=== PATIENT | male | born 1955 | race American Indian/Alaskan Native ===

== ENCOUNTER 2017-06-18 17:11 | Inpatient (IN) | payer MEDICARE ==
[2017-06-18] MEDS ORDERED: TYLENOL PO STA (17:41)
[2017-06-18] MEDS ORDERED: NACL 0.9% 500 ML 500 ML IV ONE (17:41)
[2017-06-18 18:40] LABS: Hematocrit 41.4 % (35.5-45.6); Hemoglobin 13.7 gm/dl (11.8-15.2); Mean Corpuscular HGB Conc 33 % (32-34); Mean Corpuscular Hemoglobin 31 pg (28-32); Mean Corpuscular Volume 93 fl (84-94); Platelet Count 251 K/mm3 (140-440); Red Blood Count 4.43 M/mm3 (3.65-5.03); Red Cell Distribution Width 14.6 % (13.2-15.2)
[2017-06-18 18:43] LABS: White Blood Count 20.4 K/mm3 (4.5-11.0)
[2017-06-18 18:52] LABS: Albumin 3.9 g/dL (3.9-5); Albumin/Globulin Ratio 1.3 %; Alkaline Phosphatase 86 units/L (35-129); Blood Urea Nitrogen 11 mg/dL (9-20); Calcium 9.2 mg/dL (8.4-10.2); Carbon Dioxide 21 mmol/L (22-30); Chloride 95.5 mmol/L (98-107); Glucose 177 mg/dL (75-100); Sodium 132 mmol/L (137-145); Total Protein 6.9 g/dL (6.3-8.2)
[2017-06-18 18:59] LABS: INR 1.19 (0.87-1.13)
[2017-06-18 19:25] LABS: Alanine Aminotransferase 11 units/L (7-56); Anion Gap 20 mmol/L; Potassium 4.5 mmol/L (3.6-5.0)
[2017-06-18 19:37] LABS: Basophils % (Manual) 0 % (0.0-1.8); Blastocytes % (Manual) 0 %; Eosinophils % (Manual) 0 % (0.0-4.3)
[2017-06-18 19:40] LABS: Anisocytosis 1+; Spherocytes 1+
[2017-06-18 19:41] LABS: Diff Status Complete; Platelet Estimate Consistent w Auto
[2017-06-18 20:37] LABS: Bacteria,Urine 4+ /HPF (Negative); Bilirubin,Urine NEG (Negative); Blood,Urine LG (Negative); Ketones,Urine TR mg/dL (Negative); Leukocyte Esterase,Urine LG (Negative); Mucus,Urine 2+ /HPF; Nitrite,Urine NEG (Negative)
[2017-06-18 20:38] LABS: WBC,Urine > 182.0 /HPF (0.0-6.0)
[2017-06-18] MEDS ORDERED: LEVAQUIN 750MG/150ML 750 MG/150 ML BAG IV ONE (20:41)
--- NOTE | 2017-06-18 20:57 | Emergency Department Report ---
HPI - General Chief Complaint: Fever Time Seen by Provider: 06/18/17 20:41 - HPI HPI: Room 6 The patient is a 62-year-old male presenting with a chief complaint of confusion. Family states today the patient "seemed confused." Family states the patient's while walking got bad" and he was walking "sideways" down the hallway. Family subsequently called EMS and the patient was found to have a fever. The patient has a history of paranoid schizophrenia reportedly takes Haldol monthly. The patient denies complaints. Patient denies nausea vomiting , cough or chest pain. Patient denies abdominal pain. Family states the patient fell in the shower approximately 2 weeks ago but did not go to the hospital. Location: Mental state, see above Duration: [see above] Quality: Confusion Severity: Moderate Modifying factors: [see above] Context: [see above] Mode of transportation: [not driving] ED Past Medical Hx - Past Medical History Hx Diabetes: Yes (NO CURRENT MEDS) Hx Psychiatric Treatment: Yes (PARANOID SCHIZOPHRENIA) - Surgical History Past Surgical History?: No - Family History Family history: no significant - Social History Smoking Status: Current Every Day Smoker (2 pack per day) Substance Use Type: None (denies illicit drug use) - Medications Home Medications: Home Medications Medication Instructions Recorded Confirmed Last Taken Type Benztropine [Cogentin] 2 mg PO QHS 06/18/17 06/18/17 Unknown History Haloperidol Decanoate (Nf) [Haldol 50 mg IM QMONTH 06/18/17 06/18/17 Unknown History Decanoate (Nf)] Ibuprofen [Advil 100 MG tab] 100 mg PO PRN PRN 06/18/17 06/18/17 Unknown History ED Review of Systems ROS: Stated complaint: AMS/UNABLE TO WALK Other details as noted in HPI Comment: All other systems reviewed and negative Constitutional: fever Eyes: denies: eye pain, eye discharge, vision change ENT: denies: ear pain, throat pain Respiratory: denies: cough, shortness of breath, wheezing Cardiovascular: denies: chest pain, palpitations Endocrine: no symptoms reported Gastrointestinal: denies: abdominal pain, nausea, diarrhea Genitourinary: denies: urgency, dysuria Musculoskeletal: denies: back pain, joint swelling, arthralgia Skin: denies: rash, lesions Neurological: confusion. denies: headache, weakness, paresthesias Hematological/Lymphatic: denies: easy bleeding, easy bruising Physical Exam - Physical Exam Vital Signs: Vital Signs 06/18/17 06/18/17 06/18/17 17:23 17:52 20:19 Temperature 100.8 F H 101.1 F H Pulse Rate 139 H 112 H Respiratory 38 H 38 H 20 Rate Blood Pressure 139/64 Blood Pressure 147/79 [Left] O2 Sat by Pulse 100 99 Oximetry Physical Exam: GENERAL: The patient is well-developed well-nourished male lying on stretcher not appearing to be in acute distress. [] HEENT: Normocephalic. Atraumatic. Extraocular motions are intact. Patient has moist mucous membranes. NECK: Supple. Trachea midline CHEST/LUNGS: Clear to auscultation. There is no respiratory distress noted. HEART/CARDIOVASCULAR: Regular. There is no tachycardia. There is no gallop rub or murmur. ABDOMEN: Abdomen is soft, nontender. Patient has normal bowel sounds. There is no abdominal distention. SKIN: There is no rash. There is no edema. There is no diaphoresis. NEURO: The patient is awake and alert. The patient is cooperative. The patient has normal speech MUSCULOSKELETAL: There is no evidence of acute injury. ED Course Vital Signs 06/18/17 06/18/17 06/18/17 17:23 17:52 20:19 Temperature 100.8 F H 101.1 F H Pulse Rate 139 H 112 H Respiratory 38 H 38 H 20 Rate Blood Pressure 139/64 Blood Pressure 147/79 [Left] O2 Sat by Pulse 100 99 Oximetry ED Medical Decision Making - Lab Data Result diagrams: 06/18/17 18:06 06/18/17 18:06 Laboratory Tests 06/18/17 06/18/17 06/18/17 17:35 18:06 18:06 WBC 20.4 H RBC 4.43 Hgb 13.7 Hct 41.4 MCV 93 MCH 31 MCHC 33 RDW 14.6 Plt Count 251 Add Manual Diff Complete Total Counted 100 Seg Neuts % (Manual) 78.0 H Band Neutrophils % 8.0 Lymphocytes % (Manual) 7.0 L Reactive Lymphs % (Man) 0 Monocytes % (Manual) 7.0 Eosinophils % (Manual) 0 Basophils % (Manual) 0 Metamyelocytes % 0 Myelocytes % 0 Promyelocytes % 0 Blast Cells % 0 Nucleated RBC % Not Reportable Seg Neutrophils # Man 15.9 H Band Neutrophils # 1.6 Lymphocytes # (Manual) 1.4 Abs React Lymphs (Man) 0.0 Monocytes # (Manual) 1.4 H Eosinophils # (Manual) 0.0 Basophils # (Manual) 0.0 Metamyelocytes # 0.0 Myelocytes # 0.0 Promyelocytes # 0.0 Blast Cells # 0.0 WBC Morphology Not Reportable Hypersegmented Neuts Not Reportable Hyposegmented Neuts Not Reportable Hypogranular Neuts Not Reportable Smudge Cells Not Reportable Toxic Granulation Not Reportable Toxic Vacuolation Not Reportable Dohle Bodies Not Reportable Pelger-Huet Anomaly Not Reportable Heather Rods Not Reportable Platelet Estimate Consistent w auto Clumped Platelets Not Reportable Plt Clumps, EDTA Not Reportable Large Platelets Not Reportable Giant Platelets Not Reportable Platelet Satelliting Not Reportable Plt Morphology Comment Not Reportable RBC Morphology Not Reportable Dimorphic RBCs Not Reportable Polychromasia Not Reportable Hypochromasia Not Reportable Poikilocytosis Not Reportable Anisocytosis 1+ Microcytosis Not Reportable Macrocytosis Not Reportable Spherocytes 1+ Pappenheimer Bodies Not Reportable Sickle Cells Not Reportable Target Cells Not Reportable Tear Drop Cells Not Reportable Ovalocytes Not Reportable Helmet Cells Not Reportable Lucas-[place] Bodies Not Reportable [place] Rings Not Reportable [place] Cells Not Reportable Bite Cells Not Reportable Crenated Cell Not Reportable Elliptocytes Not Reportable Acanthocytes (Spur) Not Reportable Rouleaux Not Reportable Hemoglobin C Crystals Not Reportable Schistocytes Not Reportable Malaria parasites Not Reportable Christopher Bodies Not Reportable Hem Pathologist Commnt No PT 15.0 H INR 1.19 H VBG pH Sodium Potassium Chloride Carbon Dioxide Anion Gap BUN Creatinine Estimated GFR BUN/Creatinine Ratio Glucose POC Glucose 173 H Lactic Acid Calcium Total Bilirubin AST ALT Alkaline Phosphatase Total Protein Albumin Albumin/Globulin Ratio Urine Color Urine Turbidity Urine pH Ur Specific [place] Urine Protein Urine Glucose (UA) Urine Ketones Urine Blood Urine Nitrite Urine Bilirubin Urine Urobilinogen Ur Leukocyte Esterase Urine WBC (Auto) Urine RBC (Auto) Urine Bacteria (Auto) Urine WBC Clumps Urine Mucus 06/18/17 06/18/17 06/18/17 18:06 18:06 18:06 WBC RBC Hgb Hct MCV MCH MCHC RDW Plt Count Add Manual Diff Total Counted Seg Neuts % (Manual) Band Neutrophils % Lymphocytes % (Manual) Reactive Lymphs % (Man) Monocytes % (Manual) Eosinophils % (Manual) Basophils % (Manual) Metamyelocytes % Myelocytes % Promyelocytes % Blast Cells % Nucleated RBC % Seg Neutrophils # Man Band Neutrophils # Lymphocytes # (Manual) Abs React Lymphs (Man) Monocytes # (Manual) Eosinophils # (Manual) Basophils # (Manual) Metamyelocytes # Myelocytes # Promyelocytes # Blast Cells # WBC Morphology Hypersegmented Neuts Hyposegmented Neuts Hypogranular Neuts Smudge Cells Toxic Granulation Toxic Vacuolation Dohle Bodies Pelger-Huet Anomaly Heather Rods Platelet Estimate Clumped Platelets Plt Clumps, EDTA Large Platelets Giant Platelets Platelet Satelliting Plt Morphology Comment RBC Morphology Dimorphic RBCs Polychromasia Hypochromasia Poikilocytosis Anisocytosis Microcytosis Macrocytosis Spherocytes Pappenheimer Bodies Sickle Cells Target Cells Tear Drop Cells Ovalocytes Helmet Cells Lucas-[place] Bodies [place] Cells Bite Cells Crenated Cell Elliptocytes Acanthocytes (Spur) Rouleaux Hemoglobin C Crystals Schistocytes Malaria parasites Christopher Bodies Hem Pathologist Commnt PT INR VBG pH 7.314 L Sodium 132 L Potassium 4.5 Chloride 95.5 L Carbon Dioxide 21 L Anion Gap 20 BUN 11 Creatinine 1.0 Estimated GFR > 60 BUN/Creatinine Ratio 11.00 Glucose 177 H POC Glucose Lactic Acid 1.70 Calcium 9.2 Total Bilirubin 1.10 AST 16 ALT 11 Alkaline Phosphatase 86 Total Protein 6.9 Albumin 3.9 Albumin/Globulin Ratio 1.3 Urine Color Urine Turbidity Urine pH Ur Specific [place] Urine Protein Urine Glucose (UA) Urine Ketones Urine Blood Urine Nitrite Urine Bilirubin Urine Urobilinogen Ur Leukocyte Esterase Urine WBC (Auto) Urine RBC (Auto) Urine Bacteria (Auto) Urine WBC Clumps Urine Mucus 06/18/17 06/18/17 20:16 20:33 WBC RBC Hgb Hct MCV MCH MCHC RDW Plt Count Add Manual Diff Total Counted Seg Neuts % (Manual) Band Neutrophils % Lymphocytes % (Manual) Reactive Lymphs % (Man) Monocytes % (Manual) Eosinophils % (Manual) Basophils % (Manual) Metamyelocytes % Myelocytes % Promyelocytes % Blast Cells % Nucleated RBC % Seg Neutrophils # Man Band Neutrophils # Lymphocytes # (Manual) Abs React Lymphs (Man) Monocytes # (Manual) Eosinophils # (Manual) Basophils # (Manual) Metamyelocytes # Myelocytes # Promyelocytes # Blast Cells # WBC Morphology Hypersegmented Neuts Hyposegmented Neuts Hypogranular Neuts Smudge Cells Toxic Granulation Toxic Vacuolation Dohle Bodies Pelger-Huet Anomaly Heather Rods Platelet Estimate Clumped Platelets Plt Clumps, EDTA Large Platelets Giant Platelets Platelet Satelliting Plt Morphology Comment RBC Morphology Dimorphic RBCs Polychromasia Hypochromasia Poikilocytosis Anisocytosis Microcytosis Macrocytosis Spherocytes Pappenheimer Bodies Sickle Cells Target Cells Tear Drop Cells Ovalocytes Helmet Cells Lucas-[place]amp Bodies [place] Cells Bite Cells Crenated Cell Elliptocytes Acanthocytes (Spur) Rouleaux Hemoglobin C Crystals Schistocytes Malaria parasites Christopher Bodies Hem Pathologist Commnt PT INR VBG pH Sodium Potassium Chloride Carbon Dioxide Anion Gap BUN Creatinine Estimated GFR BUN/Creatinine Ratio Glucose POC Glucose Lactic Acid 1.60 Calcium Total Bilirubin AST ALT Alkaline Phosphatase Total Protein Albumin Albumin/Globulin Ratio Urine Color Red Urine Turbidity Cloudy Urine pH 5.0 Ur Specific [place] 1.015 Urine Protein 100 mg/dl Urine Glucose (UA) 50 Urine Ketones Tr Urine Blood Lg Urine Nitrite Neg Urine Bilirubin Neg Urine Urobilinogen 2.0 Ur Leukocyte Esterase Lg Urine WBC (Auto) > 182.0 H Urine RBC (Auto) 36.0 Urine Bacteria (Auto) 4+ Urine WBC Clumps 3+ Urine Mucus 2+ - EKG Data -: EKG Interpreted by Me EKG shows normal: sinus rhythm Rate: tachycardia (134 bpm) - EKG Data When compared to previous EKG there are: no significant change Interpretation: unchanged when compared t (10/24/2011) - Radiology Data Radiology results: report reviewed (CT head, CT abdomen and pelvis), image reviewed (chest x-ray, CT abdomen and pelvis) interpreted by me: Chest x-ray- no focal infiltrates, no pneumothorax. There is no air under the diaphragm believed to be secondary to fall. Do not believe this represents free air the patient's exam however a CT of the abdomen pelvis will be ordered for further evaluation CT head (read by radiologist)-ventricular prominence is out of proportion to the sulcal prominence. Normal pressure hydrocephalus cannot be excluded. No acute intracranial hemorrhage. Complex mass lesion left parotid. CT neck with contrast is recommended. CT abdomen and pelvis (read by radiologist)-thickened urinary bladder michelle are consistent with bilateral lower obstruction. Prostatomegaly. Cystic lesions of bilateral kidneys and right lobe liver cannot be further evaluated on this noncontrast study. - Differential Diagnosis subdural hematoma, ICH, schizophrenia, UTI, pneumonia, urosepsis Critical care attestation.: If time is entered above; I have spent that time in minutes in the direct care of this critically ill patient, excluding procedure time. ED Disposition Clinical Impression: Sepsis, UTI (urinary tract infection), Fever, Parotid mass Disposition: OP ADMIT IP TO THIS HOSP Is pt being admited?: Yes Does the pt Need Aspirin: Yes Condition: Serious Referrals: PRIMARY CARE, [Primary Care Provider] - 3-5 Days Time of Disposition: 22:46 (hospitalist paged)
[2017-06-18] MEDS ORDERED: NACL 0.9% 1000 ML 1,000 ML ONE (21:59)
--- NOTE | 2017-06-18 22:23 | Cat Scan Report ---
FINAL REPORT PROCEDURE: CT HEAD/BRAIN WO CON TECHNIQUE: Computerized tomography of the head was performed without contrast material. HISTORY: confusion, history of fall 2 weeks ago COMPARISON: No prior studies are available for comparison. FINDINGS: Skull and scalp: Normal. Paranasal sinuses: Normal. Ventricles and subarachnoid spaces: Ventricular system is prominent. Ventricular prominence is out of proportion to the sulcal prominence. Cerebrum: No evidence of hemorrhage, acute infarction or mass . Cerebellum and brainstem: No evidence of hemorrhage, acute infarction or mass. Vasculature: Atherosclerotic calcification is noted involving bilateral internal carotid and vertebral arteries. Comments: There is a complex cystic lesion measuring 3.1 centimeters by 3.0 centimeters involving the left parotid. It contains solid and cystic components.. IMPRESSION: Ventricular prominence is out of proportion to the sulcal prominence. Normal pressure hydrocephalus cannot be excluded. No acute intracranial hemorrhage Complex mass lesion left parotid. CT neck with contrast is recommended.
--- NOTE | 2017-06-18 22:30 | Cat Scan Report ---
FINAL REPORT PROCEDURE: CT ABDOMEN PELVIS WO CON TECHNIQUE: Computerized axial tomography of the abdomen and pelvis was performed without intravenous contrast. This study is performed without intravascular contrast material and its sensitivity for abdominal and pelvic pathology, including neoplasms, inflammation, abscess, free fluid, thrombosis, arterial dissection and infarction, is reduced compared with a contrast enhanced study. HISTORY: fever, tachycardia, UTI COMPARISON: No prior studies are available for comparison. FINDINGS: 1.7 x 1.5 centimeter well-defined cystic lesion is noted in the right lobe liver., Pancreas and adrenal glands are within normal limits. There are 2 well-defined cystic lesions in the right kidney and 1 cystic lesion in the left kidney. Largest measures 5.3 x 5.2 centimeters located in the upper pole right kidney. There are no calculi or hydronephrosis. Left kidney demonstrates a single cyst measuring 2.2 x 2.5 centimeters. Aorta is of normal caliber. There is no free fluid or free air. Gallbladder is unremarkable. Small bowel loops are within normal limits. Appendix is normal. There is moderate to severe degree prostatomegaly with a Frost bulb in situ. Urinary bladder michelle are diffusely thickened. Moderate degree degenerative changes are noted involving L3-4 to L5-S1 disc levels IMPRESSION: . thickened urinary bladder michelle are consistent with bladder outlet obstruction. Prostatomegaly. Cystic lesions of bilateral kidneys and right lobe liver cannot be further evaluated on this noncontrast study.
[2017-06-18] MEDS ORDERED: ASPIRIN PO ONE (22:47)
[2017-06-19] MEDS ORDERED: ZOFRAN IV PRN (00:14)
[2017-06-19] MEDS ORDERED: TYLENOL PR PRN (00:15)
[2017-06-19] MEDS ORDERED: HALOPERIDOL DECANOATE 50 MG IM SCH (00:30)
[2017-06-19] MEDS ORDERED: NACL 0.9% 1000 ML 1,000 ML ONE (00:38)
[2017-06-19] MEDS ORDERED: ASPIRIN ONE (00:38)
[2017-06-19] MEDS ORDERED: NACL 0.9% 1000 ML 1,000 ML IV SCH (01:00)
[2017-06-19] MEDS: ZOSYN/NS 3.375GM/50ML 3.375 GM/50 ML BAG IV SCH ×2 (06:00→16:56)
[2017-06-19 06:02] LABS: Hematocrit 36.7 % (35.5-45.6); Hemoglobin 12.4 gm/dl (11.8-15.2); Mean Corpuscular HGB Conc 34 % (32-34); Mean Corpuscular Hemoglobin 31 pg (28-32); Mean Corpuscular Volume 93 fl (84-94); Platelet Count 202 K/mm3 (140-440); Red Blood Count 3.96 M/mm3 (3.65-5.03); Red Cell Distribution Width 14.6 % (13.2-15.2)
[2017-06-19 06:18] LABS: White Blood Count 22.9 K/mm3 (4.5-11.0)
--- NOTE | 2017-06-19 07:35 | XRay Report ---
AP CHEST: HISTORY: Sepsis AP view of the chest demonstrates a normal mediastinal and cardiac contour with clear lungs and normal bony and soft tissue structures. IMPRESSION: Unremarkable AP chest.
--- NOTE | 2017-06-19 09:42 | History and Physical Report ---
CHIEF COMPLAINT: Fever. HISTORY OF PRESENT ILLNESS: The patient is a 62-year-old male noted by the family to be more confused than his baseline. The patient has a history of paranoid schizophrenia. Family noted that he was confused and was walking sideways down the hallway, and he was found to have fever. The family called EMS. When EMS got there, the patient was noted to be having fever. There was no history of nausea or vomiting, no history of cough or chest pain or shortness of breath and the patient was brought to the Emergency Room, evaluated and found to have infection in the urine with elevated pulse and elevated temperature. PAST MEDICAL HISTORY: Pertinent for paranoid schizophrenia. PAST SURGICAL HISTORY: Unremarkable. FAMILY HISTORY: Noncontributory. SOCIAL HISTORY: The patient is everyday cigarette smoke. He does not drink alcohol and does not use illicit drugs. MEDICATIONS: The patient is on benztropine or Cogentin 2 mg by mouth at bedtime, haloperidol 15 mg IM every month and also the patient is on Advil 100 mg by mouth as needed for pain. ALLERGIES: There are no known drug allergies. REVIEW OF SYSTEMS: CONSTITUTIONAL: Noted to have fever. No chills, no diaphoresis. HEENT: There is no headache or sore throat. CARDIOVASCULAR: There is no chest pain or orthopnea. RESPIRATORY: There is no shortness of breath or cough. GASTROINTESTINAL SYSTEM: There is no nausea, no vomiting, no abdominal pain, diarrhea or constipation. NEUROLOGICAL: . There is confusion. MUSCULOSKELETAL: There is no joint pain or swelling. DERMATOLOGICAL SYSTEM: There is no skin rash or itching. GENITOURINARY: There is no dysuria, hematuria, or flank pain. PHYSICAL EXAMINATION: GENERAL: At the time of exam, the patient was found to be alert, oriented to person, place and not in acute distress. VITAL SIGNS: Shows elevated temperature with a pulse of 111, respiration of 28, blood pressure 157/80 with O2 sat of 98% on room air. HEENT: His eyes showed pupils to be equal, round, reactive to light and accommodating. Extraocular muscles are intact. NECK: Supple with no JVD or carotid bruit. CARDIOVASCULAR SYSTEM: Shows first and second heart sounds with no gallops or murmur. RESPIRATORY SYSTEM: Show good air entry on both sides of the lung with no abnormal breath sounds. GASTROINTESTINAL SYSTEM: Show abdomen to be full, soft, nontender with no organomegaly or rigidity. NEUROLOGIC: Show no focal deficit. MUSCULOSKELETAL: Show no joint swelling or tenderness. DERMATOLOGICAL SYSTEM: Show no skin rash. GENITOURINARY: Showing no costovertebral angle tenderness. PERTINENT LABORATORY AND IMAGING STUDIES: The patient had a CT of the abdomen and pelvis with contrast done, and it shows thickening of urinary bladder wall consistent with bladder outlet obstruction, prostatomegaly. There is also cystic lesion of bilateral kidneys. The patient also had a CT of the head without contrast done and this shows no acute intracranial hemorrhage; however, there is finding of ventricular prominence, which is out of proportion and the radiologist said normal pressure hydrocephalus cannot be excluded. There is finding of complex mass lesion in the left carotid. CT neck with contrast is recommended by the radiologist because of this parotid mass that was found on the left parotid gland. PERTINENT LABORATORY AND IMAGING STUDIES: The patient's lab test shows a CBC with a high white blood count of 20,400 and CBC differential shows elevated segmentary neutrophilic count of 78% with normal bands. The patient's coagulation studies show slight elevation in INR of 1.19 and chemistry showed low sodium of 132 with low chloride of 95.5 and low CO2 of 21. The patient's glucose level was found to be elevated with a value of 177. Lactic acid level came back normal. The patient's urinalysis showed large leukocyte esterase with high urine WBC of greater than 182 and 4+ bacteria. There is finding of trace ketones. DIAGNOSES: 1. Urinary tract infection. 2. Sepsis. PLAN: The patient will be admitted to medical floor telemetry and the patient will be on sequential compressive device for DVT prophylaxis and will be on Tylenol 650 mg every 4 hours rectally for fever and headache. The patient will be on heparin 5000 units subcu q. 12 hours for also DVT prophylaxis and will be on IV normal saline at 125 mL an hour to maintain blood pressure. The patient will be on IV Zofran 4 mg every 8 hours for nausea and vomiting and will be on Zosyn 3.375 g q.6 hours. The patient will continue the order for urinary catheterization. The patient's home medications will be reconciled and started accordingly. JOB# [id number] OCN/NTS MTDD
[2017-06-19] MEDS: HEPARIN SUB-Q SCH ×2 (10:41→22:16)
--- NOTE | 2017-06-19 15:01 | Progress Note ---
Assessment and Plan Assessment and plan: --Urinary retention; Probably secondary to bladder outlet obstruction/benign prostatic hypertrophy Continuous Frost catheterization, urology evaluation. Supportive care --Urinary tract infection; Empiric antibiotics, follow cultures, supportive care --Leukocytosis; secondary to UTI --Parotid tumor; chronic condition, patient already has seen and had some surgery in the past Will follow with primary care physician and possible facial surgeon as needed upon discharge --History of schizophrenia; Continue current psych medications, psych evaluation as needed --Possible normal pressure hydrocephalus on CT; chronic finding Consults neurology if needed --DVT prophylaxis; with heparin Will closely monitor the patient and adjust the management as needed Patient's condition treatment plan discussed in detail with the patient, family members at the bedside as well as the nurse I also discussed with on-call urologist Dr. Kahn and requested a consult History Interval history: patient seen and evaluated medical records reviewed, and new events reported by the nursing staff Inferior aspect, unable to void, nice chest pain or shortness of breath Family member at the bedside Hospitalist Physical - Constitutional Vitals: Temp Pulse Resp BP Pulse Ox 98.8 F 102 H 18 142/75 95 06/19/17 12:28 06/19/17 12:28 06/19/17 12:28 06/19/17 12:28 06/19/17 12:28 General appearance: Present: no acute distress, well-nourished - EENT Eyes: Present: PERRL, EOM intact - Neck Neck: Present: supple, normal ROM - Respiratory Respiratory effort: normal Respiratory: bilateral: diminished, negative: rales, rhonchi, wheezing - Cardiovascular Rhythm: regular Heart Sounds: Present: S1 & S2 - Extremities Extremities: no ischemia, No edema - Abdominal General gastrointestinal: soft, non-tender, non-distended, normal bowel sounds - Integumentary Integumentary: Present: clear, warm - Psychiatric Psychiatric: appropriate mood/affect, other (confused at times) - Neurologic Neurologic: CNII-XII intact, moves all extremities Results - Labs CBC & Chem 7: 06/19/17 05:41 06/18/17 18:06 Labs: Laboratory Last Values WBC 22.9 K/mm3 (4.5-11.0) H 06/19/17 05:41 RBC 3.96 M/mm3 (3.65-5.03) 06/19/17 05:41 Hgb 12.4 gm/dl (11.8-15.2) 06/19/17 05:41 Hct 36.7 % (35.5-45.6) 06/19/17 05:41 MCV 93 fl (84-94) 06/19/17 05:41 MCH 31 pg (28-32) 06/19/17 05:41 MCHC 34 % (32-34) 06/19/17 05:41 RDW 14.6 % (13.2-15.2) 06/19/17 05:41 Plt Count 202 K/mm3 (140-440) 06/19/17 05:41 Add Manual Diff Complete 06/18/17 18:06 Total Counted 100 06/18/17 18:06 Seg Neuts % (Manual) 78.0 % (40.0-70.0) H 06/18/17 18:06 Band Neutrophils % 8.0 % 06/18/17 18:06 Lymphocytes % (Manual) 7.0 % (13.4-35.0) L 06/18/17 18:06 Reactive Lymphs % (Man) 0 % 06/18/17 18:06 Monocytes % (Manual) 7.0 % (0.0-7.3) 06/18/17 18:06 Eosinophils % (Manual) 0 % (0.0-4.3) 06/18/17 18:06 Basophils % (Manual) 0 % (0.0-1.8) 06/18/17 18:06 Metamyelocytes % 0 % 06/18/17 18:06 Myelocytes % 0 % 06/18/17 18:06 Promyelocytes % 0 % 06/18/17 18:06 Blast Cells % 0 % 06/18/17 18:06 Nucleated RBC % Not Reportable 06/18/17 18:06 Seg Neutrophils # Man 15.9 K/mm3 (1.8-7.7) H 06/18/17 18:06 Band Neutrophils # 1.6 K/mm3 06/18/17 18:06 Lymphocytes # (Manual) 1.4 K/mm3 (1.2-5.4) 06/18/17 18:06 Abs React Lymphs (Man) 0.0 K/mm3 06/18/17 18:06 Monocytes # (Manual) 1.4 K/mm3 (0.0-0.8) H 06/18/17 18:06 Eosinophils # (Manual) 0.0 K/mm3 (0.0-0.4) 06/18/17 18:06 Basophils # (Manual) 0.0 K/mm3 (0.0-0.1) 06/18/17 18:06 Metamyelocytes # 0.0 K/mm3 06/18/17 18:06 Myelocytes # 0.0 K/mm3 06/18/17 18:06 Promyelocytes # 0.0 K/mm3 06/18/17 18:06 Blast Cells # 0.0 K/mm3 06/18/17 18:06 WBC Morphology Not Reportable 06/18/17 18:06 Hypersegmented Neuts Not Reportable 06/18/17 18:06 Hyposegmented Neuts Not Reportable 06/18/17 18:06 Hypogranular Neuts Not Reportable 06/18/17 18:06 Smudge Cells Not Reportable 06/18/17 18:06 Toxic Granulation Not Reportable 06/18/17 18:06 Toxic Vacuolation Not Reportable 06/18/17 18:06 Dohle Bodies Not Reportable 06/18/17 18:06 Pelger-Huet Anomaly Not Reportable 06/18/17 18:06 Heather Rods Not Reportable 06/18/17 18:06 Platelet Estimate Consistent w auto 06/18/17 18:06 Clumped Platelets Not Reportable 06/18/17 18:06 Plt Clumps, EDTA Not Reportable 06/18/17 18:06 Large Platelets Not Reportable 06/18/17 18:06 Giant Platelets Not Reportable 06/18/17 18:06 Platelet Satelliting Not Reportable 06/18/17 18:06 Plt Morphology Comment Not Reportable 06/18/17 18:06 RBC Morphology Not Reportable 06/18/17 18:06 Dimorphic RBCs Not Reportable 06/18/17 18:06 Polychromasia Not Reportable 06/18/17 18:06 Hypochromasia Not Reportable 06/18/17 18:06 Poikilocytosis Not Reportable 06/18/17 18:06 Anisocytosis 1+ 06/18/17 18:06 Microcytosis Not Reportable 06/18/17 18:06 Macrocytosis Not Reportable 06/18/17 18:06 Spherocytes 1+ 06/18/17 18:06 Pappenheimer Bodies Not Reportable 06/18/17 18:06 Sickle Cells Not Reportable 06/18/17 18:06 Target Cells Not Reportable 06/18/17 18:06 Tear Drop Cells Not Reportable 06/18/17 18:06 Ovalocytes Not Reportable 06/18/17 18:06 Helmet Cells Not Reportable 06/18/17 18:06 Lucas-[place] Bodies Not Reportable 06/18/17 18:06 [place] Rings Not Reportable 06/18/17 18:06 [place] Cells Not Reportable 06/18/17 18:06 Bite Cells Not Reportable 06/18/17 18:06 Crenated Cell Not Reportable 06/18/17 18:06 Elliptocytes Not Reportable 06/18/17 18:06 Acanthocytes (Spur) Not Reportable 06/18/17 18:06 Rouleaux Not Reportable 06/18/17 18:06 Hemoglobin C Crystals Not Reportable 06/18/17 18:06 Schistocytes Not Reportable 06/18/17 18:06 Malaria parasites Not Reportable 06/18/17 18:06 Christopher Bodies Not Reportable 06/18/17 18:06 Hem Pathologist Commnt No 06/18/17 18:06 PT 15.0 Sec. (12.2-14.9) H 06/18/17 18:06 INR 1.19 (0.87-1.13) H 06/18/17 18:06 VBG pH 7.314 (7.320-7.420) L 06/18/17 18:06 Sodium 132 mmol/L (137-145) L 06/18/17 18:06 Potassium 4.5 mmol/L (3.6-5.0) 06/18/17 18:06 Chloride 95.5 mmol/L (98-107) L 06/18/17 18:06 Carbon Dioxide 21 mmol/L (22-30) L 06/18/17 18:06 Anion Gap 20 mmol/L 06/18/17 18:06 BUN 11 mg/dL (9-20) 06/18/17 18:06 Creatinine 1.0 mg/dL (0.8-1.5) 06/18/17 18:06 Estimated GFR > 60 ml/min 06/18/17 18:06 BUN/Creatinine Ratio 11.00 % 06/18/17 18:06 Glucose 177 mg/dL (75-100) H 06/18/17 18:06 POC Glucose 173 (70-105) H 06/18/17 17:35 Lactic Acid 1.50 mmol/L (0.7-2.0) 06/19/17 00:16 Calcium 9.2 mg/dL (8.4-10.2) 06/18/17 18:06 Total Bilirubin 1.10 mg/dL (0.1-1.2) 06/18/17 18:06 AST 16 units/L (5-40) 06/18/17 18:06 ALT 11 units/L (7-56) 06/18/17 18:06 Alkaline Phosphatase 86 units/L (35-129) 06/18/17 18:06 Total Protein 6.9 g/dL (6.3-8.2) 06/18/17 18:06 Albumin 3.9 g/dL (3.9-5) 06/18/17 18:06 Albumin/Globulin Ratio 1.3 % 06/18/17 18:06 Urine Color Red (Yellow) 06/18/17 20:16 Urine Turbidity Cloudy (Clear) 06/18/17 20:16 Urine pH 5.0 (5.0-7.0) 06/18/17 20:16 Ur Specific [place] 1.015 (1.003-1.030) 06/18/17 20:16 Urine Protein 100 mg/dl mg/dL (Negative) 06/18/17 20:16 Urine Glucose (UA) 50 mg/dL (Negative) 06/18/17 20:16 Urine Ketones Tr mg/dL (Negative) 06/18/17 20:16 Urine Blood Lg (Negative) 06/18/17 20:16 Urine Nitrite Neg (Negative) 06/18/17 20:16 Urine Bilirubin Neg (Negative) 06/18/17 20:16 Urine Urobilinogen 2.0 mg/dL (<2.0) 06/18/17 20:16 Ur Leukocyte Esterase Lg (Negative) 06/18/17 20:16 Urine WBC (Auto) > 182.0 /HPF (0.0-6.0) H 06/18/17 20:16 Urine RBC (Auto) 36.0 /HPF (0.0-6.0) 06/18/17 20:16 Urine Bacteria (Auto) 4+ /HPF (Negative) 06/18/17 20:16 Urine WBC Clumps 3+ /HPF 06/18/17 20:16 Urine Mucus 2+ /HPF 06/18/17 20:16
--- NOTE | 2017-06-19 15:18 | Admit Criteria Form ---
Admission Criteria Documentation: URINARY COMPLICATIONS Clinical Indications for Inpatient Care (Place 'X' for any and all applicable criteria): Ongoing inpatient care may be indicated for urinary complications with ANY ONE of the following: [ X]I. Urinary tract infection requiring inpatient care as indicated by ANY ONE of the following(8)(19)(20): [ ]a) Severe symptoms (eg, high fever, severe pain) [ ]b) Vomiting or dehydration requiring ongoing inpatient care [ X]c) IV antibiotic needs that cannot be managed at lower level of care [ ]d) Hemodynamic instability [ ]e) Obstruction of collecting system by stone or tumor [ ]II. Urinary retention requiring drainage or surgery (3)(4)(5)(17)(18) [ ]III. Renal failure (Use Renal Failure Criteria for further information.) [ ]IV. Oliguria(30) [ ]V. Post obstructive diuresis requiring close monitoring of urine output and intravenous compensation for excessive fluid losses(33) Extended stay beyond goal length of stay for primary condition may be needed until ALL of the following are present(3)(4)(5)(8): [ ]a) Renal function (creatinine) at baseline, or daily decreases in creatinine consistent with renal function return [ ]b) Voiding adequately or with urinary catheter or percutaneous suprapubic tube and management regimen in place that is performable at lower level of care. [ ]c) Urine output adequate [ ]d) Fever absent or resolving [ ]e) Infection absent or treatable at next level of care The original [employer] content created by [employer] has been revised. The portions of the content which have been revised are identified through the use of italic text or in bold, and [facility] has neither reviewed nor approved the modified material. All other unmodified content is copyright [employer] Please see references footnoted in the original [employer] edition 2016
--- NOTE | 2017-06-19 18:09 | Consultation ---
History of Present Illness - Reason for Consult Consult date: 06/19/17 - History of Present Illness CC: retention The patient is a 62-year-old male presenting with a chief complaint of confusion. Family states today the patient "seemed confused." Family states the patient's while walking got bad" and he was walking "sideways" down the hallway. Family subsequently called EMS and the patient was found to have a fever. The patient has a history of paranoid schizophrenia reportedly takes Haldol monthly. The patient denies complaints. Patient denies nausea vomiting , cough or chest pain. Patient denies abdominal pain. Family states the patient fell in the shower approximately 2 weeks ago but did not go to the hospital. CTAP (06-18-17) renal cysts, BPH, thick bladder wall, DJD spine A/P BPH DIABETES (SUGGEST NEUROGENIC BLADDER) replace [place]--HOME WITH [place] START FLOMAX 1QD OUTPT URODYNAMICS Medications and Allergies Allergies Allergy/AdvReac Type Severity Reaction Status Date / Time No Known Allergies Allergy Unverified 06/18/17 17:41 Home Medications Medication Instructions Recorded Confirmed Last Taken Type Benztropine [Cogentin] 2 mg PO QHS 06/18/17 06/18/17 Unknown History Haloperidol Decanoate (Nf) [Haldol 50 mg IM QMONTH 06/18/17 06/18/17 Unknown History Decanoate (Nf)] Ibuprofen [Advil 100 MG tab] 100 mg PO PRN PRN 06/18/17 06/18/17 Unknown History Active Meds: Active Medications Acetaminophen (Tylenol) 650 mg NM Q4H PRN PRN Reason: For Pain/Fever/Headache Benztropine Mesylate (Cogentin) 2 mg PO QHS [facility] Heparin Sodium (Porcine) (Heparin) 5,000 unit SUB-Q Q12HR [facility] Last Admin: 06/19/17 10:41 Dose: 5,000 unit Sodium Chloride (Nacl 0.9% 1000 Ml) 1,000 mls @ 125 mls/hr IV DIRECT JEFF Last Admin: 06/19/17 00:35 Dose: 125 mls/hr Piperacillin Sod/Tazobactam Sod (Zosyn/Ns 3.375gm/50ml) 3.375 gm in 50 mls @ 100 mls/hr IV Q6HR JE[facility] Last Admin: 06/19/17 16:56 Dose: 100 mls/hr Insulin Aspart (Novolog) 0 units SUB-Q ACHS JEFF PRN Reason: Protocol Miscellaneous Medication (Haloperidol Decanoate (Nf) [Haldol Decanoate (Nf)]) 50 mg IM QMONTH JE[facility] Last Admin: 06/19/17 02:38 Dose: Not Given Ondansetron HCl (Zofran) 4 mg IV Q8H PRN PRN Reason: Nausea And Vomiting Exam - Constitutional Vitals: Temp Pulse Resp BP Pulse Ox 78 F L 78 18 146/86 98 06/19/17 17:34 06/19/17 17:34 06/19/17 17:34 06/19/17 17:34 06/19/17 17:34 Results - Labs CBC & Chem 7: 06/19/17 05:41 06/18/17 18:06 Labs: Abnormal lab results 06/19/17 Range/Units 05:41 WBC 22.9 H (4.5-11.0) K/mm3
[2017-06-19] MEDS: COGENTIN PO SCH (22:16)
[2017-06-19] MEDS: NOVOLOG SUB-Q SCH (22:22)
[2017-06-20] MEDS: ZOSYN/NS 3.375GM/50ML 3.375 GM/50 ML BAG IV SCH ×5 (01:16→17:23)
[2017-06-20 05:38] LABS: Hematocrit 35.5 % (35.5-45.6); Mean Corpuscular HGB Conc 34 % (32-34); Mean Corpuscular Hemoglobin 31 pg (28-32); Mean Corpuscular Volume 93 fl (84-94); Platelet Count 189 K/mm3 (140-440); Red Blood Count 3.84 M/mm3 (3.65-5.03); Red Cell Distribution Width 14.5 % (13.2-15.2)
[2017-06-20 05:45] LABS: White Blood Count 24.1 K/mm3 (4.5-11.0)
[2017-06-20 06:02] LABS: Anion Gap 16 mmol/L; Blood Urea Nitrogen 11 mg/dL (9-20); Calcium 8.3 mg/dL (8.4-10.2); Carbon Dioxide 23 mmol/L (22-30); Chloride 100.3 mmol/L (98-107); Glucose 96 mg/dL (75-100); Potassium 3.8 mmol/L (3.6-5.0); Sodium 135 mmol/L (137-145)
[2017-06-20 06:41] LABS: Basophils % (Manual) 0 % (0.0-1.8); Blastocytes % (Manual) 0 %; Eosinophils % (Manual) 0 % (0.0-4.3)
[2017-06-20 06:42] LABS: Burr Cells 1+; Diff Status Complete
[2017-06-20 06:44] LABS: Acanthocytes Few
[2017-06-20] MEDS: NOVOLOG SUB-Q SCH ×5 (07:30→22:01)
[2017-06-20] MEDS: HEPARIN SUB-Q SCH ×2 (09:57→21:53)
[2017-06-20] MEDS: FLOMAX PO SCH (09:57)
--- NOTE | 2017-06-20 15:11 | Progress Note ---
Assessment and Plan Assessment and plan: --Urinary retention; Continues Frost catheterization, urology evaluation and recommendations noted and appreciated, Recommend , DC home with Frost and further evaluation as outpatient upon discharge --Urinary tract infection; positive Escherichia coli Empiric antibiotics, follow culture sensitivities and adjust --Leukocytosis; secondary to UTI, resolved --Parotid tumor; chronic condition, patient already has seen and had some surgery in the past --History of schizophrenia; Continue current psych medications, follow-up with psych upon discharge --Possible normal pressure hydrocephalus on CT; old condition, no neuro symptoms Follow neurologist upon discharge --DVT prophylaxis; with heparin Follow culture sensitivities, physical therapy evaluation Possible discharge home tomorrow with home health and home PT if stable History Interval history: Patient seen and evaluated in his room this morning medical records reviewed Patient's is at the bedside No new complaints, alert awake oriented 3 not in acute distress Vital signs reviewed Hospitalist Physical - Constitutional Vitals: Temp Pulse Resp BP Pulse Ox 98.6 F 101 H 20 140/79 99 06/20/17 12:25 06/20/17 12:25 06/20/17 12:25 06/20/17 12:25 06/20/17 12:25 General appearance: Present: no acute distress, well-nourished - EENT Eyes: Present: PERRL, EOM intact - Neck Neck: Present: supple, normal ROM - Respiratory Respiratory effort: normal Respiratory: bilateral: diminished, negative: rales, rhonchi, wheezing - Cardiovascular Rhythm: regular Heart Sounds: Present: S1 & S2 - Extremities Extremities: no ischemia, No edema - Abdominal General gastrointestinal: soft, non-tender, non-distended, normal bowel sounds - Integumentary Integumentary: Present: clear, warm - Psychiatric Psychiatric: appropriate mood/affect, other (confused at times) - Neurologic Neurologic: moves all extremities Results - Labs CBC & Chem 7: 06/20/17 04:57 06/20/17 04:57 Labs: Laboratory Last Values WBC 24.1 K/mm3 (4.5-11.0) H 06/20/17 04:57 RBC 3.84 M/mm3 (3.65-5.03) 06/20/17 04:57 Hgb 12.0 gm/dl (11.8-15.2) 06/20/17 04:57 Hct 35.5 % (35.5-45.6) 06/20/17 04:57 MCV 93 fl (84-94) 06/20/17 04:57 MCH 31 pg (28-32) 06/20/17 04:57 MCHC 34 % (32-34) 06/20/17 04:57 RDW 14.5 % (13.2-15.2) 06/20/17 04:57 Plt Count 189 K/mm3 (140-440) 06/20/17 04:57 Add Manual Diff Complete 06/20/17 04:57 Total Counted 100 06/20/17 04:57 Seg Neuts % (Manual) 91.0 % (40.0-70.0) H 06/20/17 04:57 Band Neutrophils % 0 % 06/20/17 04:57 Lymphocytes % (Manual) 5.0 % (13.4-35.0) L 06/20/17 04:57 Reactive Lymphs % (Man) 0 % 06/20/17 04:57 Monocytes % (Manual) 4.0 % (0.0-7.3) 06/20/17 04:57 Eosinophils % (Manual) 0 % (0.0-4.3) 06/20/17 04:57 Basophils % (Manual) 0 % (0.0-1.8) 06/20/17 04:57 Metamyelocytes % 0 % 06/20/17 04:57 Myelocytes % 0 % 06/20/17 04:57 Promyelocytes % 0 % 06/20/17 04:57 Blast Cells % 0 % 06/20/17 04:57 Nucleated RBC % Not Reportable 06/20/17 04:57 Seg Neutrophils # Man 21.9 K/mm3 (1.8-7.7) H 06/20/17 04:57 Band Neutrophils # 0.0 K/mm3 06/20/17 04:57 Lymphocytes # (Manual) 1.2 K/mm3 (1.2-5.4) 06/20/17 04:57 Abs React Lymphs (Man) 0.0 K/mm3 06/20/17 04:57 Monocytes # (Manual) 1.0 K/mm3 (0.0-0.8) H 06/20/17 04:57 Eosinophils # (Manual) 0.0 K/mm3 (0.0-0.4) 06/20/17 04:57 Basophils # (Manual) 0.0 K/mm3 (0.0-0.1) 06/20/17 04:57 Metamyelocytes # 0.0 K/mm3 06/20/17 04:57 Myelocytes # 0.0 K/mm3 06/20/17 04:57 Promyelocytes # 0.0 K/mm3 06/20/17 04:57 Blast Cells # 0.0 K/mm3 06/20/17 04:57 WBC Morphology Not Reportable 06/20/17 04:57 Hypersegmented Neuts Not Reportable 06/20/17 04:57 Hyposegmented Neuts Not Reportable 06/20/17 04:57 Hypogranular Neuts Not Reportable 06/20/17 04:57 Smudge Cells Not Reportable 06/20/17 04:57 Toxic Granulation Not Reportable 06/20/17 04:57 Toxic Vacuolation Not Reportable 06/20/17 04:57 Dohle Bodies Not Reportable 06/20/17 04:57 Pelger-Huet Anomaly Not Reportable 06/20/17 04:57 Heather Rods Not Reportable 06/20/17 04:57 Platelet Estimate Appears normal 06/20/17 04:57 Clumped Platelets Not Reportable 06/20/17 04:57 Plt Clumps, EDTA Not Reportable 06/20/17 04:57 Large Platelets Not Reportable 06/20/17 04:57 Giant Platelets Not Reportable 06/20/17 04:57 Platelet Satelliting Not Reportable 06/20/17 04:57 Plt Morphology Comment Not Reportable 06/20/17 04:57 RBC Morphology Not Reportable 06/20/17 04:57 Dimorphic RBCs Not Reportable 06/20/17 04:57 Polychromasia Not Reportable 06/20/17 04:57 Hypochromasia Not Reportable 06/20/17 04:57 Poikilocytosis Not Reportable 06/20/17 04:57 Anisocytosis Not Reportable 06/20/17 04:57 Microcytosis Not Reportable 06/20/17 04:57 Macrocytosis Not Reportable 06/20/17 04:57 Spherocytes Not Reportable 06/20/17 04:57 Pappenheimer Bodies Not Reportable 06/20/17 04:57 Sickle Cells Not Reportable 06/20/17 04:57 Target Cells Not Reportable 06/20/17 04:57 Tear Drop Cells Not Reportable 06/20/17 04:57 Ovalocytes Not Reportable 06/20/17 04:57 Helmet Cells Not Reportable 06/20/17 04:57 Lucas-[place] Bodies Not Reportable 06/20/17 04:57 [place] Rings Not Reportable 06/20/17 04:57 [place] Cells 1+ 06/20/17 04:57 Bite Cells Not Reportable 06/20/17 04:57 Crenated Cell Not Reportable 06/20/17 04:57 Elliptocytes Not Reportable 06/20/17 04:57 Acanthocytes (Spur) Few 06/20/17 04:57 Rouleaux Not Reportable 06/20/17 04:57 Hemoglobin C Crystals Not Reportable 06/20/17 04:57 Schistocytes Not Reportable 06/20/17 04:57 Malaria parasites Not Reportable 06/20/17 04:57 Christopher Bodies Not Reportable 06/20/17 04:57 Hem Pathologist Commnt No 06/20/17 04:57 PT 15.0 Sec. (12.2-14.9) H 06/18/17 18:06 INR 1.19 (0.87-1.13) H 06/18/17 18:06 VBG pH 7.314 (7.320-7.420) L 06/18/17 18:06 Sodium 135 mmol/L (137-145) L 06/20/17 04:57 Potassium 3.8 mmol/L (3.6-5.0) 06/20/17 04:57 Chloride 100.3 mmol/L (98-107) 06/20/17 04:57 Carbon Dioxide 23 mmol/L (22-30) 06/20/17 04:57 Anion Gap 16 mmol/L 06/20/17 04:57 BUN 11 mg/dL (9-20) 06/20/17 04:57 Creatinine 1.0 mg/dL (0.8-1.5) 06/20/17 04:57 Estimated GFR > 60 ml/min 06/20/17 04:57 BUN/Creatinine Ratio 11.00 % 06/20/17 04:57 Glucose 96 mg/dL (75-100) 06/20/17 04:57 POC Glucose 151 (70-105) H 06/20/17 11:48 Lactic Acid 1.50 mmol/L (0.7-2.0) 06/19/17 00:16 Calcium 8.3 mg/dL (8.4-10.2) L 06/20/17 04:57 Magnesium 1.80 mg/dL (1.7-2.3) 06/20/17 04:57 Total Bilirubin 1.10 mg/dL (0.1-1.2) 06/18/17 18:06 AST 16 units/L (5-40) 06/18/17 18:06 ALT 11 units/L (7-56) 06/18/17 18:06 Alkaline Phosphatase 86 units/L (35-129) 06/18/17 18:06 Total Protein 6.9 g/dL (6.3-8.2) 06/18/17 18:06 Albumin 3.9 g/dL (3.9-5) 06/18/17 18:06 Albumin/Globulin Ratio 1.3 % 06/18/17 18:06 Urine Color Red (Yellow) 06/18/17 20:16 Urine Turbidity Cloudy (Clear) 06/18/17 20:16 Urine pH 5.0 (5.0-7.0) 06/18/17 20:16 Ur Specific [place] 1.015 (1.003-1.030) 06/18/17 20:16 Urine Protein 100 mg/dl mg/dL (Negative) 06/18/17 20:16 Urine Glucose (UA) 50 mg/dL (Negative) 06/18/17 20:16 Urine Ketones Tr mg/dL (Negative) 06/18/17 20:16 Urine Blood Lg (Negative) 06/18/17 20:16 Urine Nitrite Neg (Negative) 06/18/17 20:16 Urine Bilirubin Neg (Negative) 06/18/17 20:16 Urine Urobilinogen 2.0 mg/dL (<2.0) 06/18/17 20:16 Ur Leukocyte Esterase Lg (Negative) 06/18/17 20:16 Urine WBC (Auto) > 182.0 /HPF (0.0-6.0) H 06/18/17 20:16 Urine RBC (Auto) 36.0 /HPF (0.0-6.0) 06/18/17 20:16 Urine Bacteria (Auto) 4+ /HPF (Negative) 06/18/17 20:16 Urine WBC Clumps 3+ /HPF 06/18/17 20:16 Urine Mucus 2+ /HPF 06/18/17 20:16
[2017-06-20] MEDS: COGENTIN PO SCH (21:53)
[2017-06-21] MEDS: ZOSYN/NS 3.375GM/50ML 3.375 GM/50 ML BAG IV SCH ×3 (01:00→13:36)
[2017-06-21] MEDS: NOVOLOG SUB-Q SCH ×2 (08:00→13:36)
[2017-06-21] MEDS: HEPARIN SUB-Q SCH (10:40)
[2017-06-21] MEDS: FLOMAX PO SCH (10:40)
--- NOTE | 2017-06-21 11:57 | Discharge Summary ---
Providers - Providers Date of Admission: 06/19/17 00:11 Date of discharge: 06/21/17 Attending physician: AUSTIN ROSALES 06/19/17 14:11 Consult to Physician [CONS] Routine Consulting Provider: KEN KAHN Reason For Exam: urinary retention Place consult to:: Dr. Kahn Notified:: Carol Was contact made?: Yes If yes, spoke with:: Dr. Rosales spoke with Dr. Kahn Time called:: 14:18 06/20/17 11:30 Physical Therapy Evaluation and Treat [CONS] Routine Comment: Reason For Exam: discharge disposition Primary care physician: STILL TENDER Hospitalization Condition: Stable Hospital course: --Urinary retention; Continues Frost catheterization, urology evaluation and recommendations noted and appreciated, Recommend , DC home with Frost and further evaluation as outpatient upon discharge --Urinary tract infection; positive Escherichia coli Empiric antibiotics, follow culture sensitivities and adjust --Leukocytosis; secondary to UTI, resolved --Parotid tumor; chronic condition, patient already has seen and had some surgery in the past --History of schizophrenia; Continue current psych medications, follow-up with psych upon discharge --Possible normal pressure hydrocephalus on CT; old condition, no neuro symptoms Follow neurologist upon discharge --DVT prophylaxis; with heparin Disposition: DC/[place]-06 HOME UNDER HOME HLTH Time spent for discharge: 33 min Core Measure Documentation - Palliative Care Palliative Care/ Comfort Measures: Not Applicable - Core Measures Any of the following diagnoses?: none Exam - Constitutional Vitals: Temp Pulse Resp BP Pulse Ox 98.9 F 88 88 H 158/82 98 06/21/17 07:55 06/21/17 07:55 06/21/17 07:55 06/21/17 07:55 06/21/17 07:55 General appearance: Present: no acute distress, well-nourished - EENT Eyes: Present: PERRL, EOM intact - Neck Neck: Present: supple, normal ROM - Respiratory Respiratory effort: normal Respiratory: bilateral: diminished, negative: rales, rhonchi, wheezing - Cardiovascular Rhythm: regular Heart Sounds: Present: S1 & S2 - Extremities Extremities: no ischemia, No edema - Abdominal General gastrointestinal: Present: soft, non-tender, non-distended, normal bowel sounds - Integumentary Integumentary: Present: clear, warm - Musculoskeletal Musculoskeletal: strength equal bilaterally - Psychiatric Psychiatric: appropriate mood/affect, cooperative - Neurologic Neurologic: CNII-XII intact, moves all extremities Plan Activity: advance as tolerated, fall precautions Diet: regular Special Instructions: physical therapy Follow up with: PRIMARY CARE, [Primary Care Provider] - 3-5 Days KEN KAHN MD [Staff Physician] - 7 Days ISABELLE OREILLY MD [Staff Physician] - 7 Days Prescriptions: Ciprofloxacin HCl [Ciprofloxacin TAB] 500 mg PO Q12H #20 tab Tamsulosin [Flomax] 0.4 mg PO QDAY #30 capsule
[2017-06-21] MEDS ORDERED: PREVNAR 13 IM ONE (12:00)
[2017-06-21 13:39] VITALS: BP 140/64
== END 2017-06-21 13:00 | disposition home health service (06) | DRG 872 ==
LOC: ED 17:11 → 4A 06-19 00:11
PROVIDERS: ADMIT Internal Medicine; ATTEND Internal Medicine
PROC: 3E0234Z Introduction of Serum, Toxoid and Vaccine into Muscle, Percutaneous Approach (ICD-10-PCS; principal; 2017-06-21)
DX: A41.9 Sepsis, unspecified organism (principal); N39.0 Urinary tract infection, site not specified; F20.0 Paranoid schizophrenia; G91.2 (Idiopathic) normal pressure hydrocephalus; N40.0 Benign prostatic hyperplasia without lower urinary tract symptoms; Z23 Encounter for immunization; E11.9 Type 2 diabetes mellitus without complications; F17.200 Nicotine dependence, unspecified, uncomplicated; R33.9 Retention of urine, unspecified; B96.20 Unspecified Escherichia coli [E. coli] as the cause of diseases classified elsewhere
CPT/HCPCS: 36415; 51702; 70450; 71010; 74176; 80048; 80053; 81001; 82140; 82805; 82962; 83735; 85007; 85025; 85027; 85610; 87040; 87076; 87086; 87186; 90670; 93005; 93010; 96361; 96365; G8978-GP; G8979-GP; J1644; J1815; J1956; J2543; J7030

== ENCOUNTER 2017-08-25 11:23 | Day surgery (SDC) | payer MEDICARE ==
--- NOTE | 2017-08-25 13:54 | Short Stay Summary ---
Short Stay Documentation Date of service: 08/25/17 Narrative H&P: left parotid mass - History Principal diagnosis: left parotid mass H&P: obtained from office - Allergies and Medications Current Medications: Allergies No Known Allergies Allergy (Unverified 06/18/17 17:41) Home Medications Medication Instructions Recorded Confirmed Last Taken Type Benztropine [Cogentin] 2 mg PO QHS 06/18/17 08/25/17 08/24/17 History 2mg Haloperidol Decanoate (Nf) [Haldol 50 mg IM QMONTH 06/18/17 08/25/17 08/25/17 09 :10 History Decanoate (Nf)] 50mg Ibuprofen [Advil 100 MG tab] 100 mg PO PRN PRN 06/18/17 08/25/17 08/19/17 History 2 tab Ciprofloxacin HCl [Ciprofloxacin 500 mg PO Q12H #20 tab 06/21/17 08/25/17 Rx TAB] Tamsulosin [Flomax] 0.4 mg PO QDAY #30 capsule 06/21/17 08/25/17 08/24/17 Rx 0.4mg Haloperidol [Haldol] 5 mg PO HS 08/25/17 08/25/17 08/24/17 History 5mg - Physical exam General appearance: no acute distress HEENT: Other (palpable 5cm left parotid mass) - Brief post op/procedure progress note Date of procedure: 08/25/17 Pre-op diagnosis: left parotid mass Post-op diagnosis: same Procedure: US guided FNA Anesthesia: local Surgeon: YADIRA JACK Estimated blood loss: none Pathology: list (FNA x 3) Specimen disposition: to lab Condition: stable - Disposition Condition at discharge: Good Disposition: DC-01 TO HOME OR SELFCARE Short Stay Discharge Plan Follow up with: NAV DEVRIES MD [Primary Care Provider] - 7 Days
[2017-08-25 14:01] VITALS: BP 116/92
--- NOTE | 2017-08-25 14:23 | Ultrasound Report ---
ULTRASOUND BIOPSY SOFT TISSUE NECK OR CHEST HISTORY: Left parotid mass DESCRIPTION OF PROCEDURE: Informed consent was obtained. Sterile technique was utilized. 1% lidocaine for skin anesthesia. Using ultrasound guidance, 3 fine needle aspirations were obtained from a left parotid mass measuring 4.8 x 2.2 x 3.5 cm. The samples were deemed adequate by the pathologist on site. The pathologist did request a core biopsy of the left parotid mass. The patient refused. IMPRESSION: Successful ultrasound-guided fine needle aspiration of the left parotid mass.
== END 2017-08-25 14:00 | disposition home or self-care (01) ==
LOC: CATHLABREC 11:23 → EDSTATUS 12:00 → CATHLABREC 14:00
PROVIDERS: ATTEND Otolaryngology
DX: M79.89 Other specified soft tissue disorders (principal)
CPT/HCPCS: 20206; 76942; 88172; 88173; 88305; 88333

== ENCOUNTER 2018-06-30 13:19 | Emergency (ER) | payer MEDICARE ==
[2018-06-30] MEDS ORDERED: NACL 0.9% 1000 ML IV ONE (13:52)
--- NOTE | 2018-06-30 13:56 | Emergency Department Report ---
ED General Adult HPI - General Chief complaint: Weakness Stated complaint: BLOOD PRESSURE LOW, NOT EATING Time Seen by Provider: 06/30/18 13:37 Source: patient, family, RN notes reviewed, old records reviewed Mode of arrival: Wheelchair Limitations: No Limitations - History of Present Illness Initial comments: This is a 63-year-old gentleman, who has a past medical history of type 2 diabetes, tobacco dependency, COPD, osteoarthritis, paranoid schizophrenia, recently admitted to this hospital for sepsis secondary to presumed urinary tract infection. Primary care Dr.: Dr. Chema Salgado. as per review of old medical records his has indicated chronic confusion, intermittent confusion and intermittent weakness. He is also currently seeing a neurologist. He had urine cultures grew out Klebsiella which was pansensitive to all agents with the exception of ampicillin on June 08. He is brought to the ER by his for evaluation of confusion, and generalized weakness. The patient has no complaints. He denies headache, neck pain, chest pain, abdominal pain and shortness of breath. He was found to be hypotensive in the field. His indicates that he's had a few episodes of nonbloody, nonbilious emesis. She denies diarrhea. The patient's also thinks that he is slightly more confused than usual, and indicates that she feels like he's not turning around correctly. The patient has no recollection of this. , -: Gradual Consistency: intermittent Improves with: none Worsens with: none Associated Symptoms: confusion, loss of appetite, malaise, nausea/vomiting, weakness. denies: chest pain, cough, diaphoresis, fever/chills, headaches, rash , seizure, shortness of breath, syncope - Related Data Home Medications Medication Instructions Recorded Confirmed Last Taken Multivit-Min36/Iron/Folic Acid 1 each PO DAILY 06/08/18 06/30/18 Unknown [Geritol Complete Tablet] Benztropine [Cogentin] 5 mg PO BID 06/30/18 06/30/18 Unknown Ibuprofen [Motrin] 400 mg PO Q6H PRN 06/30/18 06/30/18 Unknown Paliperidone Palmitate [Invega 156 mg IM QMONTH 06/30/18 06/30/18 06/25/18 Sustenna] Tamsulosin [Flomax] 0.4 mg PO QHS 06/30/18 06/30/18 Unknown Previous Rx's Medication Instructions Recorded Last Taken Type Nicotine [Nicotine Patch] 21 mg TD DAILY #14 patch.[id number] 06/11/18 Unknown Rx Allergies Allergy/AdvReac Type Severity Reaction Status Date / Time No Known Allergies Allergy Verified 06/30/18 13:24 ED Review of Systems ROS: Stated complaint: BLOOD PRESSURE LOW, NOT EATING Other details as noted in HPI Comment: All other systems reviewed and negative ED Past Medical Hx - Past Medical History Hx Congestive Heart Failure: No Hx Diabetes: Yes Hx Deep Vein Thrombosis: No Hx Pulmonary Embolism: No Hx GERD: No Hx Arthritis: Yes (neck/back/knee) Hx Seizures: No Hx Psychiatric Treatment: Yes (PARANOID SCHIZOPHRENIA) Hx Asthma: No Hx COPD: Yes Hx Dementia: No - Surgical History Past Surgical History?: No - Social History Smoking Status: Current Every Day Smoker Substance Use Type: None - Medications Home Medications: Home Medications Medication Instructions Recorded Confirmed Last Taken Type Multivit-Min36/Iron/Folic Acid 1 each PO DAILY 06/08/18 06/30/18 Unknown History [Geritol Complete Tablet] Nicotine [Nicotine Patch] 21 mg TD DAILY #14 patch.td24 18 06/30/18 Unknown Rx Benztropine [Cogentin] 5 mg PO BID 06/30/18 06/30/18 Unknown History Ibuprofen [Motrin] 400 mg PO Q6H PRN 06/30/18 06/30/18 Unknown History Paliperidone Palmitate [Invega 156 mg IM QMONTH 06/30/18 06/30/18 06/25/18 History Sustenna] Tamsulosin [Flomax] 0.4 mg PO QHS 06/30/18 06/30/18 Unknown History ED Physical Exam - General Limitations: No Limitations General appearance: alert, in no apparent distress - Head Head exam: Present: atraumatic, normocephalic - Eye Eye exam: Present: normal appearance, EOMI. Absent: nystagmus - ENT ENT exam: Present: normal exam, normal orophraynx, mucous membranes moist, other (the patient has a chronic well-circumscribed circular/oval mass on the left angle of the mandible, which is nontender. The reports this has been there chronically. She reports a biopsy and reports benign pathology.) - Neck Neck exam: Present: normal inspection, full ROM. Absent: tenderness, meningismus - Respiratory Respiratory exam: Present: normal lung sounds bilaterally. Absent: respiratory distress - Cardiovascular Cardiovascular Exam: Present: normal rhythm, tachycardia, normal heart sounds. Absent: systolic murmur, diastolic murmur, rubs, gallop - GI/Abdominal GI/Abdominal exam: Present: soft, normal bowel sounds. Absent: distended, tenderness, guarding, rebound, rigid, pulsatile mass - Rectal Rectal exam: Present: normal inspection, other (escorted by nurse Anjel perdue). Absent: heme (-) stool - Extremities Exam Extremities exam: Present: normal inspection, full ROM, normal capillary refill , other (2+ pulses noted in the bilateral upper, lower extremities. Compartments soft. No long bony tenderness. The pelvis is stable.). Absent: tenderness, pedal edema, joint swelling, calf tenderness - Back Exam Back exam: Present: normal inspection, full ROM. Absent: tenderness, CVA tenderness (R), paraspinal tenderness, vertebral tenderness - Neurological Exam Neurological exam: Present: alert, oriented X3, CN II-XII intact, other ( Extraocular movements intact. Tongue midline. No facial droop. Facial sensation intact to light touch in the V1, V2, V3 distribution bilaterally. 5 and 5 strength in 4 extremities.. Sensation is intact to light touch in 4 extremities.). Absent: motor sensory deficit - Psychiatric Psychiatric exam: Present: flat affect - Skin Skin exam: Present: warm, dry, intact, normal color. Absent: rash ED Course Vital Signs 06/30/18 06/30/18 06/30/18 13:24 14:00 14:16 Temperature 98.1 F 99.4 F Pulse Rate 135 H 98 H Respiratory 22 11 L 16 Rate Blood Pressure 84/35 105/53 O2 Sat by Pulse 98 Oximetry 06/30/18 06/30/18 06/30/18 14:31 15:01 16:26 Temperature Pulse Rate 81 85 Respiratory 17 15 Rate Blood Pressure 105/65 110/74 125/74 O2 Sat by Pulse Oximetry - Reevaluation(s) Reevaluation #1: 06/30/18 15:00 Differential diagnosis, including without limited to: Intracranial hemorrhage, intra-abdominal lesion, urinary tract infection, pneumonia, dehydration, pulmonary embolus Assessment and plan: 63-year-old male with initial presentation of tachycardia and hypotension. His tachycardia has resolved with IV fluids and his blood pressure is in the 100s. He has an NIH score of 0 and a normal neurologic examination. He has a GCS of 15. He is alert to name, place and location. He does not appear to be confused to me. He is guaiac negative on his rectal examination. Given his recent hospitalization, unexplained tachycardia and hypotension, a d- dimer was sent, and is elevated, and a CT scan of the abdomen and pelvis is pending. The urinalysis is pending at this time too. Noncontrast CT scan of the brain is negative for acute findings, unchanged from prior CT scan, noncontrast CT scan of the abdomen and pelvis is also negative. Given his normal mental status, lack of fever, resolution of normal vital signs , his clinical lack of encephalopathy on my exam, I think bacteremia is very unlikely. Reevaluation #2: 06/30/18 16:53 Tachycardia has resolved. Hypotension has resolved. Patient has been reevaluated in this department by myself multiple times. He has not had any clinical decompensations. A CT scan of the chest showed no pulmonary embolus. No pneumonia was noted. Incidental pericardial effusion was noted, and can be followed up by outpatient cardiology. Reevaluation #3: 06/30/18 17:23 The urinalysis is not consistent with a urinary tract infection. Patient has been observed in the ER for hours without decompensation. He is suitable to follow-up with his outpatient primary care doctor. ED Medical Decision Making - Lab Data Result diagrams: 06/30/18 13:58 06/30/18 13:58 Vital Signs 06/30/18 06/30/18 06/30/18 13:24 14:00 14:16 Temperature 98.1 F Pulse Rate 135 H 98 H Respiratory 22 11 L 16 Rate Blood Pressure 84/35 105/53 O2 Sat by Pulse 98 Oximetry Lab Results 06/30/18 06/30/18 06/30/18 Range/Units 13:58 13:58 13:58 WBC 7.7 (4.5-11.0) K/mm3 RBC 3.75 (3.65-5.03) M/mm3 Hgb 11.8 (11.8-15.2) gm/dl Hct 34.8 L (35.5-45.6) % MCV 93 (84-94) fl MCH 32 (28-32) pg MCHC 34 (32-34) % RDW 14.5 (13.2-15.2) % Plt Count 232 (140-440) K/mm3 Lymph % (Auto) 19.3 (13.4-35.0) % Carroll % (Auto) 6.4 (0.0-7.3) % Eos % (Auto) 0.2 (0.0-4.3) % Baso % (Auto) 0.9 (0.0-1.8) % Lymph # 1.5 (1.2-5.4) K/mm3 Carroll # 0.5 (0.0-0.8) K/mm3 Eos # 0.0 (0.0-0.4) K/mm3 Baso # 0.1 (0.0-0.1) K/mm3 Seg Neutrophils % 73.2 H (40.0-70.0) % Seg Neutrophils # 5.7 (1.8-7.7) K/mm3 APTT 30.8 (24.2-36.6) Sec. D-Dimer 298.26 H (0-234) ng/mlDDU Sodium (137-145) mmol/L Potassium (3.6-5.0) mmol/L Chloride (98-107) mmol/L Carbon Dioxide (22-30) mmol/L Anion Gap mmol/L BUN (9-20) mg/dL Creatinine (0.8-1.5) mg/dL Estimated GFR ml/min BUN/Creatinine Ratio % Glucose (75-100) mg/dL Lactic Acid 2.00 (0.7-2.0) mmol/L Calcium (8.4-10.2) mg/dL Magnesium (1.7-2.3) mg/dL Total Bilirubin (0.1-1.2) mg/dL AST (5-40) units/L ALT (7-56) units/L Alkaline Phosphatase (35-129) units/L Ammonia (25-60) umol/L Total Creatine Kinase (55-170) units/L Troponin T (0.00-0.029) ng/mL Total Protein (6.3-8.2) g/dL Albumin (3.9-5) g/dL Albumin/Globulin Ratio % TSH (0.270-4.200) mlU/mL 06/30/18 06/30/18 06/30/18 Range/Units 13:58 13:58 13:58 WBC (4.5-11.0) K/mm3 RBC (3.65-5.03) M/mm3 Hgb (11.8-15.2) gm/dl Hct (35.5-45.6) % MCV (84-94) fl MCH (28-32) pg MCHC (32-34) % RDW (13.2-15.2) % Plt Count (140-440) K/mm3 Lymph % (Auto) (13.4-35.0) % Carroll % (Auto) (0.0-7.3) % Eos % (Auto) (0.0-4.3) % Baso % (Auto) (0.0-1.8) % Lymph # (1.2-5.4) K/mm3 Carroll # (0.0-0.8) K/mm3 Eos # (0.0-0.4) K/mm3 Baso # (0.0-0.1) K/mm3 Seg Neutrophils % (40.0-70.0) % Seg Neutrophils # (1.8-7.7) K/mm3 APTT (24.2-36.6) Sec. D-Dimer (0-234) ng/mlDDU Sodium 132 L (137-145) mmol/L Potassium 3.8 (3.6-5.0) mmol/L Chloride 98.1 (98-107) mmol/L Carbon Dioxide 22 (22-30) mmol/L Anion Gap 16 mmol/L BUN 13 (9-20) mg/dL Creatinine 1.2 (0.8-1.5) mg/dL Estimated GFR > 60 ml/min BUN/Creatinine Ratio 11 % Glucose 176 H (75-100) mg/dL Lactic Acid 2.00 (0.7-2.0) mmol/L Calcium 8.5 (8.4-10.2) mg/dL Magnesium 2.00 (1.7-2.3) mg/dL Total Bilirubin 0.90 (0.1-1.2) mg/dL AST 11 (5-40) units/L ALT 9 (7-56) units/L Alkaline Phosphatase 63 (35-129) units/L Ammonia (25-60) umol/L Total Creatine Kinase 64 (55-170) units/L Troponin T < 0.010 (0.00-0.029) ng/mL Total Protein 6.4 (6.3-8.2) g/dL Albumin 3.3 L (3.9-5) g/dL Albumin/Globulin Ratio 1.1 % TSH (0.270-4.200) mlU/mL 06/30/18 06/30/18 Range/Units 14:07 14:07 WBC (4.5-11.0) K/mm3 RBC (3.65-5.03) M/mm3 Hgb (11.8-15.2) gm/dl Hct (35.5-45.6) % MCV (84-94) fl MCH (28-32) pg MCHC (32-34) % RDW (13.2-15.2) % Plt Count (140-440) K/mm3 Lymph % (Auto) (13.4-35.0) % Carroll % (Auto) (0.0-7.3) % Eos % (Auto) (0.0-4.3) % Baso % (Auto) (0.0-1.8) % Lymph # (1.2-5.4) K/mm3 Carroll # (0.0-0.8) K/mm3 Eos # (0.0-0.4) K/mm3 Baso # (0.0-0.1) K/mm3 Seg Neutrophils % (40.0-70.0) % Seg Neutrophils # (1.8-7.7) K/mm3 APTT (24.2-36.6) Sec. D-Dimer (0-234) ng/mlDDU Sodium (137-145) mmol/L Potassium (3.6-5.0) mmol/L Chloride (98-107) mmol/L Carbon Dioxide (22-30) mmol/L Anion Gap mmol/L BUN (9-20) mg/dL Creatinine (0.8-1.5) mg/dL Estimated GFR ml/min BUN/Creatinine Ratio % Glucose (75-100) mg/dL Lactic Acid (0.7-2.0) mmol/L Calcium (8.4-10.2) mg/dL Magnesium (1.7-2.3) mg/dL Total Bilirubin (0.1-1.2) mg/dL AST (5-40) units/L ALT (7-56) units/L Alkaline Phosphatase (35-129) units/L Ammonia 22.0 L (25-60) umol/L Total Creatine Kinase (55-170) units/L Troponin T (0.00-0.029) ng/mL Total Protein (6.3-8.2) g/dL Albumin (3.9-5) g/dL Albumin/Globulin Ratio % TSH 0.838 (0.270-4.200) mlU/mL - EKG Data -: EKG Interpreted by Me EKG shows normal: sinus rhythm Rate: tachycardia - EKG Data When compared to previous EKG there are: no significant change Interpretation: no acute changes, unchanged when compared t (06/18/2017) 06/30/18 15:03 Sinus tachycardia, 109 bpm, normal axis, QTC prolonged, atrial enlargement, low voltage in 1 and aVL, not a STEMI. - Radiology Data Radiology results: report reviewed, image reviewed interpreted by me: X-ray of the chest is negative for acute disease. Hyperinflated lungs noted. Noncontrast CT scan of the brain is negative. Noncontrast CT scan of the abdomen and pelvis is negative for acute findings. Critical care attestation.: If time is entered above; I have spent that time in minutes in the direct care of this critically ill patient, excluding procedure time. ED Disposition Clinical Impression: History of weakness Disposition: DC-01 TO HOME OR SELFCARE Is pt being admited?: No Does the pt Need Aspirin: No Condition: Good Instructions: Acute Pericarditis (ED), Pericardial Effusion (ED) Additional Instructions: Cultures were sent today, results will be available in the next 5-6 days. Have a primary care doctor contact the medical records department to obtain culture results. Do not take metformin for the next 48 hours if patient takes this medication. Follow up with a primary care doctor or return to the emergency room in 2 days for repeat checkup/evaluation. Alternatively, the patient may follow up in the urgent care center for repeat checkup/evaluation. Drink 6-8 cups of water per day. Return to the ER right away with new pain, worsened pain , migration of pain, fevers, chills, lethargy, projectile vomiting, change in mental status, confusion, inability to tolerate liquid feeds. CT scan of the chest showed fluid around the sac of the heart, a pericardial effusion, does not typically dangerous or life threatening, but should be followed up by a residential property consultant within the next 7-10 days. Follow up with either of the listed cardiology groups within the recommended timeframe. Referrals: PRIMARY CARE, [Primary Care Provider] - 3-5 Days NICK LYNN MD [Staff Physician] - 3-5 Days [facility] [Provider Group] - 3-5 Days [facility] [Provider Group] - 3-5 Days
[2018-06-30 14:21] LABS: Basophils # (Auto) 0.1 K/mm3 (0.0-0.1); Basophils % (Auto) 0.9 % (0.0-1.8); Eosinophils % (Auto) 0.2 % (0.0-4.3); Hematocrit 34.8 % (35.5-45.6); Hemoglobin 11.8 gm/dl (11.8-15.2); Lymphocytes # (Auto) 1.5 K/mm3 (1.2-5.4); Lymphocytes % (Auto) 19.3 % (13.4-35.0); Mean Corpuscular HGB Conc 34 % (32-34); Mean Corpuscular Hemoglobin 32 pg (28-32); Mean Corpuscular Volume 93 fl (84-94); Monocytes # (Auto) 0.5 K/mm3 (0.0-0.8); Monocytes % (Auto) 6.4 % (0.0-7.3); Platelet Count 232 K/mm3 (140-440); Red Blood Count 3.75 M/mm3 (3.65-5.03); Red Cell Distribution Width 14.5 % (13.2-15.2)
[2018-06-30 14:32] LABS: Partial Thromboplastin Time 30.8 Sec. (24.2-36.6)
[2018-06-30 14:41] LABS: Alanine Aminotransferase 9 units/L (7-56); Albumin 3.3 g/dL (3.9-5); BUN/Creatinine Ratio 11; Blood Urea Nitrogen 13 mg/dL (9-20); Calcium 8.5 mg/dL (8.4-10.2); Hemolysis Index 8
--- NOTE | 2018-06-30 14:47 | Cat Scan Report ---
CT HEAD WITHOUT CONTRAST: HISTORY: Altered mental status. TECHNIQUE: Sequential CT images without contrast. FINDINGS: Images obtained show bilateral prominence of the sulci and ventricles. There are no abnormal intra- or extra-axial blood or fluid collections. There are no focal masses or evidence of mass effect. The yanez white matter differentiation appears within normal limits. Regions of periventricular decreased attenuation are consistent with microangiopathic ischemic disease. Mild diffuse enlargement of the ventricular system is again seen which is unchanged since 06/08/18. The posterior fossa contents remain unremarkable. The calvarium is intact the sinuses and mastoid air cells are adequately aerated. IMPRESSION: Evidence of atrophy and microangiopathic ischemic disease. Mild ventriculomegaly which is unchanged since 06/08/18. No acute intracranial process noted.
--- NOTE | 2018-06-30 14:50 | Cat Scan Report ---
CT ABDOMEN PELVIS WITHOUT CONTRAST: HISTORY: Nausea and vomiting, change in mental status. COMPARISON: 06/09/18. TECHNIQUE: Helical CT in 1.25mm intervals without IV contrast. Sagittal and coronal reconstructions. FINDINGS: Lung bases: Normal. Liver: Within normal limits. 1.7 cm cyst or hemangioma in the right hepatic lobe is unchanged. Biliary system: Normal. Pancreas: Normal. Spleen: Normal. Kidneys/ureters/bladder: Bilateral renal cysts, right greater than left, are unchanged. No evidence for obstructive uropathy. Normal bladder. Adrenal glands: Normal. Aorta: Normal. Intestines: No evidence for bowel obstruction or focal inflammation. Appendix: Not confidently identified. Pelvic viscera: Normal. Ascites: None. Adenopathy: None. Musculoskeletal: Advanced lumbar spondylosis. Osteopenia. No fracture or suspicious bony lesion. IMPRESSION: No acute process is identified in the abdomen or pelvis. Liver cysts and renal cysts, unchanged.
[2018-06-30] MEDS ORDERED: NACL 0.9% 1000 ML 1,000 ML IV ONE (15:04)
[2018-06-30 15:43] LABS: INR 1.04 (0.87-1.13)
--- NOTE | 2018-06-30 15:50 | XRay Report ---
FINAL REPORT EXAM: XR CHEST 1V AP HISTORY: weakness TECHNIQUE: AP portable view of the chest PRIORS: None. FINDINGS: Lines, tubes, and devices: N/A Lungs and pleura: Trachea is normal in position. Lungs are clear of infiltrate, pleural effusion, vascular congestion, or pneumothorax. Cardiomediastinal silhouette: Cardiac and mediastinal silhouettes are unremarkable. Other: Bony structures are intact. IMPRESSION: No acute cardiopulmonary process seen.
--- NOTE | 2018-06-30 16:31 | Cat Scan Report ---
FINAL REPORT EXAM: CT ANGIO CHEST HISTORY: tachycardia hypotension TECHNIQUE: Axial images are performed from the lung apices to the bases following IV contrast administration. Multiplanar reformats are performed on the acquisition scanner. Total exam DLP 694.86 mGy-cm Comparison: Chest x-ray same day, CT 06/09/2018 lung bases mild hypoventilatory changes without focal infiltrate. FINDINGS: Mild hypoventilatory dependent changes without focal infiltrate. Ascending aorta has normal course and caliber. Pulmonary outflow tract, left and right main pulmonary arteries have normal course and caliber without intraluminal filling defect. Heart size is normal. Prominent azygos. Moderate pericardial effusion around the ascending aorta/proximal arch and pulmonary outflow tract. Patulous esophagus. No discrete mediastinal adenopathy. Hepatic and renal cysts. Diffuse fecal retention. MIP reconstructed images demonstrate no pulmonary embolus. There is mild atherosclerotic disease of the origin of the celiac axis and SMA without stenosis identified. Lower cervical degenerative disease incompletely imaged. Central airways are unremarkable. IMPRESSION: Hypoventilatory changes. No focal infiltrate. No pulmonary embolus. Prominent azygos. Pericardial effusion localized around the aortic arch and pulmonary outflow tract of undetermined etiology.
[2018-06-30 16:55] LABS: Bacteria,Urine 1+ /HPF (Negative); Bilirubin,Urine NEG (Negative); Blood,Urine NEG (Negative); Color,Urine Yellow (Yellow); Mucus,Urine FEW /HPF; Protein,Urine <15 mg/dL mg/dL (Negative); Urobilinogen,Urine < 2.0 mg/dL (<2.0)
[2018-06-30 19:13] VITALS: BP 152/77
== END 2018-06-30 19:13 | disposition home or self-care (01) ==
LOC: ED 13:19
DX: N39.0 Urinary tract infection, site not specified (principal); E11.9 Type 2 diabetes mellitus without complications; J44.9 Chronic obstructive pulmonary disease, unspecified; M19.90 Unspecified osteoarthritis, unspecified site; F20.0 Paranoid schizophrenia; F17.200 Nicotine dependence, unspecified, uncomplicated; E86.0 Dehydration
CPT/HCPCS: 36415; 51701; 70450; 71045; 71275; 74176; 80053; 81001; 82140; 82271; 82550; 82962; 83735; 84443; 84484; 85025; 85379; 85610; 85730; 87040; 87086; 93005; 93010; 96361; 96374; 99285; J7030; Q9967

== ENCOUNTER 2018-07-03 16:05 | Emergency (ER) | payer MEDICARE ==
[2018-07-03] MEDS ORDERED: NACL 0.9% 500 ML 500 ML IV ONE (16:26)
[2018-07-03 16:42] LABS: Basophils # (Auto) 0.1 K/mm3 (0.0-0.1); Basophils % (Auto) 0.9 % (0.0-1.8); Eosinophils # (Auto) 0.1 K/mm3 (0.0-0.4); Eosinophils % (Auto) 0.9 % (0.0-4.3); Hematocrit 35.4 % (35.5-45.6); Hemoglobin 12.1 gm/dl (11.8-15.2); Lymphocytes # (Auto) 1.6 K/mm3 (1.2-5.4); Lymphocytes % (Auto) 29.3 % (13.4-35.0); Mean Corpuscular HGB Conc 34 % (32-34); Mean Corpuscular Hemoglobin 32 pg (28-32); Mean Corpuscular Volume 93 fl (84-94); Monocytes # (Auto) 0.5 K/mm3 (0.0-0.8); Monocytes % (Auto) 8.5 % (0.0-7.3); Platelet Count 238 K/mm3 (140-440); Red Blood Count 3.81 M/mm3 (3.65-5.03); Red Cell Distribution Width 14.2 % (13.2-15.2)
[2018-07-03 16:51] LABS: INR 1.05 (0.87-1.13)
[2018-07-03 17:39] LABS: Alanine Aminotransferase 8 units/L (7-56); Albumin 3.4 g/dL (3.9-5); BUN/Creatinine Ratio 12; Blood Urea Nitrogen 15 mg/dL (9-20); Calcium 8.9 mg/dL (8.4-10.2); Hemolysis Index 5
--- NOTE | 2018-07-03 18:29 | Emergency Department Report ---
- General Chief complaint: Weakness Stated complaint: LOW BP/ELEVATED HEATE RATE Time Seen by Provider: 07/03/18 18:27 Source: patient Mode of arrival: Ambulatory Limitations: No Limitations - History of Present Illness Initial comments: Patient has a poor appetite according to his after he was started on a new psychiatric medication for his schizophrenia. His said he did not eat the whole of today because he does not have appetite. Patient is complaining of generalized weakness and lack of appetite. He denies any numbness or syncope, chest pain, abdominal pain or shortness of breath. MD Complaint: generalized weakness -: Gradual Location: generalized Severity: mild Severity scale (0 -10): 0 Consistency: constant Improves with: none Worsens with: none Context: new medication Associated Symptoms: denies other symptoms - Related Data Home Medications Medication Instructions Recorded Confirmed Last Taken Multivit-Min36/Iron/Folic Acid 1 each PO DAILY 06/08/18 06/30/18 Unknown [Geritol Complete Tablet] Benztropine [Cogentin] 5 mg PO BID 06/30/18 06/30/18 Unknown Ibuprofen [Motrin] 400 mg PO Q6H PRN 06/30/18 06/30/18 Unknown Paliperidone Palmitate [Invega 156 mg IM QMONTH 06/30/18 06/30/18 06/25/18 Sustenna] Tamsulosin [Flomax] 0.4 mg PO QHS 06/30/18 06/30/18 Unknown Previous Rx's Medication Instructions Recorded Last Taken Type Nicotine [Nicotine Patch] 21 mg TD DAILY #14 patch.td24 06/11/18 Unknown Rx Ondansetron [Zofran Odt] 4 mg PO Q8HR PRN #20 tab.rapdis 07/04/18 Unknown Rx cephALEXin [Keflex] 500 mg PO Q8HR #30 cap 07/04/18 Unknown Rx Allergies Allergy/AdvReac Type Severity Reaction Status Date / Time No Known Allergies Allergy Verified 06/30/18 13:24 ED Review of Systems ROS: Stated complaint: LOW BP/ELEVATED HEATE RATE Other details as noted in HPI Comment: All other systems reviewed and negative Constitutional: denies: chills, fever Eyes: denies: eye pain, eye discharge ENT: denies: ear pain, throat pain Respiratory: denies: cough, orthopnea, shortness of breath Cardiovascular: denies: chest pain, palpitations Endocrine: no symptoms reported Gastrointestinal: denies: abdominal pain, nausea, vomiting, diarrhea Genitourinary: denies: urgency, dysuria, frequency Musculoskeletal: denies: back pain Skin: denies: rash, lesions Neurological: weakness. denies: headache, numbness, paresthesias, confusion Psychiatric: denies: anxiety, depression Hematological/Lymphatic: denies: easy bleeding, easy bruising ED Past Medical Hx - Past Medical History Hx Congestive Heart Failure: No Hx Diabetes: Yes Hx Deep Vein Thrombosis: No Hx Pulmonary Embolism: No Hx GERD: No Hx Arthritis: Yes (neck/back/knee) Hx Seizures: No Hx Psychiatric Treatment: Yes (PARANOID SCHIZOPHRENIA) Hx Asthma: No Hx COPD: Yes Hx Dementia: No - Social History Smoking Status: Never Smoker Substance Use Type: None - Medications Home Medications: Home Medications Medication Instructions Recorded Confirmed Last Taken Type Multivit-Min36/Iron/Folic Acid 1 each PO DAILY 06/08/18 06/30/18 Unknown History [Geritol Complete Tablet] Nicotine [Nicotine Patch] 21 mg TD DAILY #14 patch.td24 06/11/18 06/30/18 Unknown Rx Benztropine [Cogentin] 5 mg PO BID 06/30/18 06/30/18 Unknown History Ibuprofen [Motrin] 400 mg PO Q6H PRN 06/30/18 06/30/18 Unknown History Paliperidone Palmitate [Invega 156 mg IM QMONTH 06/30/18 06/30/18 06/25/18 History Sustenna] Tamsulosin [Flomax] 0.4 mg PO QHS 06/30/18 06/30/18 Unknown History Ondansetron [Zofran Odt] 4 mg PO Q8HR PRN #20 tab.rapdis 07/04/18 Unknown Rx cephALEXin [Keflex] 500 mg PO Q8HR #30 cap 07/04/18 Unknown Rx ED Physical Exam - General Limitations: No Limitations General appearance: alert, in no apparent distress - Head Head exam: Present: atraumatic, normocephalic, normal inspection - Eye Eye exam: Present: normal appearance, PERRL, EOMI Pupils: Present: normal accommodation - ENT ENT exam: Present: normal exam, normal orophraynx, mucous membranes dry - Neck Neck exam: Present: normal inspection, full ROM. Absent: tenderness - Respiratory Respiratory exam: Present: normal lung sounds bilaterally. Absent: respiratory distress, wheezes, rales, rhonchi, stridor - Cardiovascular Cardiovascular Exam: Present: regular rate, normal rhythm, normal heart sounds - GI/Abdominal GI/Abdominal exam: Present: soft, normal bowel sounds. Absent: distended, tenderness, guarding, rebound, rigid - Extremities Exam Extremities exam: Present: normal inspection, full ROM, normal capillary refill. Absent: tenderness, pedal edema, joint swelling - Back Exam Back exam: Present: normal inspection, full ROM. Absent: tenderness - Neurological Exam Neurological exam: Present: alert, oriented X3, CN II-XII intact - Psychiatric Psychiatric exam: Present: flat affect - Skin Skin exam: Present: warm, dry, intact, normal color. Absent: rash - Assessment Assessment Interval: Baseline - Level of Consciousness 1a. Level of Consciousness: alert - LOC Questions 1b. LOC Questions: answers correctly - LOC Command 1c. LOC Commands: performs tasks correctly - Best Gaze 2. Best Gaze: normal - Visual 3. Visual: no visual loss - Facial Palsy 4. Facial Palsy: normal symmetrical movement - Motor Arm 5b. Motor Arm Right: no drift 5a. Motor Arm Left: no drift - Motor Leg 6a. Motor Leg Left: no drift 6b. Motor Leg Right: no drift - Limb Ataxia 7. Limb Ataxia: absent - Sensory 8. Sensory: normal - Best Language 9. Best Language: no aphasia - Dysarthria 10. Dysarthria: normal - Extinction and Inattention 11. Extinction/Inattention: no abnormality - Scoring Total Score: 0 Stroke Severity: No Stroke Symptoms ED Course Vital Signs 07/03/18 07/03/18 07/03/18 16:21 17:52 17:53 Temperature 98.9 F 98.6 F Pulse Rate 113 H 83 Pulse Rate [ Lying] Pulse Rate [ Sitting] Pulse Rate [ Standing] Respiratory 16 18 16 Rate Blood Pressure 74/42 Blood Pressure 129/69 [Left] Blood Pressure [Lying] Blood Pressure [Sitting] Blood Pressure [Standing] O2 Sat by Pulse 96 99 99 Oximetry 07/03/18 07/03/18 07/03/18 18:54 19:17 20:00 Temperature 98.8 F 98.3 F Pulse Rate 79 81 79 Pulse Rate [ 78 Lying] Pulse Rate [ 88 Sitting] Pulse Rate [ 84 Standing] Respiratory 19 20 22 Rate Blood Pressure 140/75 Blood Pressure 138/65 140/93 [Left] Blood Pressure 138/89 [Lying] Blood Pressure 141/93 [Sitting] Blood Pressure 144/90 [Standing] O2 Sat by Pulse 98 100 100 Oximetry 07/03/18 07/03/18 07/03/18 21:00 22:00 23:00 Temperature Pulse Rate 80 76 74 Pulse Rate [ Lying] Pulse Rate [ Sitting] Pulse Rate [ Standing] Respiratory 12 14 16 Rate Blood Pressure 148/76 147/74 145/77 Blood Pressure [Left] Blood Pressure [Lying] Blood Pressure [Sitting] Blood Pressure [Standing] O2 Sat by Pulse 93 Oximetry ED Medical Decision Making - Lab Data Result diagrams: 07/03/18 16:28 07/03/18 16:28 - EKG Data -: EKG Interpreted by Me EKG shows normal: sinus rhythm Rate: tachycardia (107) - EKG Data When compared to previous EKG there are: no significant change Interpretation: nonspecific ST-T wave smitha, LVH, other (PVC's, No STEMI.) - Radiology Data Radiology results: report reviewed, image reviewed - Medical Decision Making Generalized Weakness. Critical care attestation.: If time is entered above; I have spent that time in minutes in the direct care of this critically ill patient, excluding procedure time. ED Disposition Clinical Impression: Dehydration, Generalized weakness, Lisbet infection UTI (urinary tract infection) Qualifiers: Urinary tract infection type: acute cystitis Hematuria presence: without hematuria Qualified Code(s): N30.00 - Acute cystitis without hematuria Disposition: - TO HOME OR SELFCARE Is pt being admited?: No Does the pt Need Aspirin: No Condition: Stable Instructions: Dehydration (ED), Urinary Tract Infection in Men (ED) Additional Instructions: Follow up with your primary doctor onMonday morning. Stay hydrated by drinking plenty of fluids. Also follow up with your psychiatrist to change your psychiatric medication. Return to the emergency room if your condition worsens. Prescriptions: cephALEXin [Keflex] 500 mg PO Q8HR #30 cap Ondansetron [Zofran Odt] 4 mg PO Q8HR PRN #20 tab.rapdis PRN Reason: Nausea And Vomiting Referrals: PRIMARY CARE, [Primary Care Provider] - 3-5 Days Time of Disposition: 00:06
[2018-07-03] MEDS ORDERED: NACL 0.9% 1000 ML 1,000 ML IV ONE (18:33)
--- NOTE | 2018-07-03 18:47 | XRay Report ---
FINAL REPORT PROCEDURE: XR CHEST 1V AP TECHNIQUE: Chest radiograph anteroposterior view. HISTORY: Possible sepsis. COMPARISON: Chest radiograph dated 06/30/2018. FINDINGS: Heart: Normal. Mediastinum/Vessels: Normal. Lungs/Pleural space: Normal. Bony thorax: No acute osseous abnormality. Life support devices: None. IMPRESSION: No new radiographic evidence of acute cardiopulmonary disease.
--- NOTE | 2018-07-03 20:11 | Cat Scan Report ---
FINAL REPORT PROCEDURE: CT HEAD/BRAIN WO CON TECHNIQUE: Computerized tomography of the head was performed without contrast material. HISTORY: Generalized Weakness COMPARISON: 06/08/2018 FINDINGS: Skull and scalp: Normal. Paranasal sinuses: Normal. Ventricles and subarachnoid spaces: Are prominent. Ventricular prominence is out of proportion to the sulcal prominence.. Cerebrum: Moderate degree bilateral periventricular nonspecific white matter hypodensity is noted most likely representing chronic microangiopathy. An extra-axial or intra-axial hemorrhage or mass effect is not identified.. Cerebellum and brainstem: No evidence of hemorrhage, acute infarction or mass. Vasculature: Atherosclerotic calcification of internal carotid arteries is noted.. Comments: None. IMPRESSION: Ventricular prominence is out of proportion to the sulcal prominence. Normal pressure hydrocephalus cannot be excluded. These findings are not significantly changed since the prior study. Otherwise no acute intracranial abnormality.
[2018-07-03] MEDS ORDERED: K-DUR PO ONE (21:39)
[2018-07-03 22:37] LABS: Bilirubin,Urine NEG (Negative); Blood,Urine NEG (Negative); Color,Urine Yellow (Yellow); Protein,Urine <15 mg/dL mg/dL (Negative)
[2018-07-03] MEDS ORDERED: DIFLUCAN PO ONE (22:54)
[2018-07-03] MEDS ORDERED: ROCEPHIN/NS 1 GM/50 ML 1 GM/50 ML BAG IV ONE (23:01)
[2018-07-03 23:28] VITALS: BP 145/77
== END 2018-07-04 00:52 | disposition home or self-care (01) ==
LOC: ED 16:05
DX: N30.00 Acute cystitis without hematuria (principal); E86.0 Dehydration; B37.9 Candidiasis, unspecified; E11.9 Type 2 diabetes mellitus without complications; M19.90 Unspecified osteoarthritis, unspecified site; F20.0 Paranoid schizophrenia; J44.9 Chronic obstructive pulmonary disease, unspecified
CPT/HCPCS: 36415; 70450; 71045; 80053; 81001; 82140; 82550; 82805; 83880; 84484; 85025; 85610; 87040; 87086; 93005; 93010; 96361; 96365; 99285; J0696; J7030